=== PATIENT | female | born 1960 | race Caucasian/White ===

== ENCOUNTER 2016-12-11 15:29 | Emergency (ER) | payer OTHER ==
[2016-12-11 15:38] VITALS: BP 148/73; PULSE 80; TEMP 98.3; BMI 28.3
--- NOTE | 2016-12-11 17:28 | PDOC ---
History of Present Illness - General Chief Complaint: Lightheaded Stated Complaint: LOWER BACK PAIN Time Seen by Provider: 12/11/16 17:08 History Source: Patient Exam Limitations: No Limitations - History of Present Illness Initial Comments: CHIEF COMPLAINT: 56 y/o afebrile female with chronic low back pain and osteoporosis c/o worsening low back pain for the past 2 days. HISTORY OF PRESENT ILLNESS: The patient states the pain is worse on the right side and radiates down her right leg. She denies recent fall and back trauma, f /c, n/v/d, CP, SOB, palpitations, abd pain, hematuria, dysuria, saddle anesthesia, bowel/bladder incontinence. She has taken Tylenol for pain with no relief. She states at times the pain causes her to be dizzy. Vital signs on arrival are within normal limits. REVIEW OF SYSTEMS: GENERAL/CONSTITUTIONAL: No fever/chills. No weakness. No weight change. HEAD, EYES, EARS, NOSE AND THROAT: No change in vision. No ear pain or discharge. No sore throat. CARDIOVASCULAR: No chest pain or shortness of breath. RESPIRATORY: No cough, wheezing, or hemoptysis. GASTROINTESTINAL: No abd pain, nausea, vomiting, diarrhea. GENITOURINARY: No dysuria, frequency, or change in urination. MUSCULOSKELETAL: No joint or muscle swelling or pain. No neck pain. +low back pain. SKIN: No rash or easy bruising. NEUROLOGIC: No headache, vertigo, loss of consciousness, or loss of sensation. PHYSICAL EXAM: GENERAL: The patient is awake, alert, and fully oriented, in no acute distress. She is well appearing but slow with movements secondary to pain. HEAD: Normal with no signs of trauma. ENT: Pupils equal, round and reactive to light, extraocular movements intact, sclera anicteric, conjunctiva clear. Neck supple. LUNGS: Clear to auscultation bilaterally. Normal excursion. No respiratory distress or use of accessory muscles. CV: RRR, S1/S2, no MRG. Cap refill < 2 sec. ABDOMEN: Soft, non-distended, non-tender even to deep palpation, no hepatomegaly or splenomegaly, no masses. BACK: No midline low back pain or step offs. Pain reproduced with palpation of b/l lumbar paravertebral muscles and of b/l gluteal muscles, worse on the right side. Pain reproduced with stretching of the piriformis muscles. EXTREMITIES: Normal range of motion, no edema. Equal straight leg raise b/l. NEUROLOGICAL: Normal speech, normal gait. CN II-XII grossly intact. No saddle anesthesia. PSYCH: Normal mood, normal affect. SKIN: Warm, dry, normal turgor, no rashes or lesions noted. Past History - Past Medical History Allergies/Adverse Reactions: Allergies Allergy/AdvReac Type Severity Reaction Status Date / Time No Known Allergies Allergy Verified 12/11/16 15:33 Home Medications: Ambulatory Orders Oxycodone HCl/Acetaminophen [Percocet 5-325 mg Tablet] 1 tab PO Q6H PRN #15 tablet MDD 4 05/05/16 Aspirin [ASA -] 81 mg PO DAILY 12/11/16 Ibuprofen 600 mg PO TID #20 tablet 12/11/16 Metformin HCl 500 mg PO DAILY 12/11/16 Methocarbamol [Robaxin -] 1,000 mg PO TID #24 tablet 12/11/16 Cardiac Disorders: Yes Diabetes: Yes (PRE) Other medical history: O.P - Surgical History Cholecystectomy: Yes - Psycho/Social/Smoking Cessation Hx Anxiety: No Suicidal Ideation: No Smoking Status: Yes Smoking History: Current every day smoker Have you smoked in the past 12 months: Yes Number of Cigarettes Smoked Daily: 6 Information on smoking cessation initiated: Yes 'Breaking Loose' booklet given: 12/11/16 Hx Alcohol Use: No Drug/Substance Use Hx: No Substance Use Type: None *Physical Exam - Vital Signs Last Vital Signs Temp Pulse Resp BP Pulse Ox 98.3 F 80 18 148/73 100 12/11/16 15:35 12/11/16 15:35 12/11/16 15:35 12/11/16 15:35 12/11/16 15:35 Medical Decision Making - Medical Decision Making A/P: 56 y/o afebrile female with b/l sciatica, worse on right side. Plan is as follows: 1. IM toradol 2. PO robaxin Demonstrated a stretch for her piriformis muscle and encouraged the patient to perform once per hour at home to help stretch the muscle and reduce pain. Also suggested massage to the affected area as tolerated. Sent prescriptions for ibuprofen and robaxin and instructed the patient to take together to help with pain. Informed her that robaxin may cause drowsiness. Suggested she f/u with Dr. Camargo in 1-2 weeks if no improvement in pain with medications, and return to the ER with any worsening or concerning symptoms. The patient verbalizes understanding of all instructions, has no further questions and is awaiting discharge. *DC/Admit/Observation/Transfer Diagnosis at time of Disposition: Sciatica, right side Low back pain Qualifiers: Chronicity: acute Back pain laterality: bilateral Sciatica presence: with sciatica Sciatica laterality: bilateral sciatica Qualified Code(s): M54.42 - Lumbago with sciatica, left side - Discharge Dispostion Disposition: HOME Condition at time of disposition: Stable - Prescriptions Prescriptions: Ibuprofen 600 mg PO TID #20 tablet Methocarbamol [Robaxin -] 1,000 mg PO TID #24 tablet - Referrals Referrals: Catherine Camargo [Primary Care Provider] - - Patient Instructions Printed Discharge Instructions: DI for Back Pain With Sciatica, DI for Sciatica Additional Instructions: Discharge Instructions: -2 prescriptions have been sent to your pharmacy; please take them together 3 times per day with food -The medication may cause you to be drowsy -Perform the stretches shown to you in the ER once an hour until you feel better -Have someone massage your back and buttocks at least once per day -Follow up with Dr. Camargo in 2 weeks if no improvement in symptoms with medication and stretching. Instrucciones de christin: -2 recetas roldan sido enviadas a reynoso farmacia; Por favor, tmelos juntos 3 veces al da con la comida -El medicamento puede provocar somnolencia -Realizar los tramos que se le muestran en el ER emile vez por hora hasta que se sienta mejor -Favian que alguien masaje reynoso espalda y nalgas al menos emile vez al da -Seguir con el Dr. Downey en 2 semanas si no mejora los sntomas con medicacin y estiramiento. Print Language: BURMESE
[2016-12-11] MEDS ORDERED: METHOCARBAMOL 500 MG TABLET PO ONE (17:42)
[2016-12-11] MEDS ORDERED: KETOROLAC TROMETHAMINE 60 MG/2 ML VIAL IM ONE (17:42)
[2016-12-11] MEDS ORDERED: KETOROLAC TROMETHAMINE 60 MG/2 ML VIAL ONE (17:49)
[2016-12-11] MEDS ORDERED: METHOCARBAMOL 500 MG TABLET ONE (17:49)
--- NOTE | 2016-12-11 17:53 | PDOC ---
*Physical Exam - Vital Signs Last Vital Signs Temp Pulse Resp BP Pulse Ox 98.3 F 80 18 148/73 100 12/11/16 15:35 12/11/16 15:35 12/11/16 15:35 12/11/16 15:35 12/11/16 15:35 Medical Decision Making - Medical Decision Making 12/11/16 17:53 Pt seen by the Advanced Practice Provider under my direct supervision Ancillary studies reviewed I agree with plan as outlined by the Advanced Practice Provider PARVEZ Doyle *DC/Admit/Observation/Transfer Diagnosis at time of Disposition: Sciatica, right side Low back pain Qualifiers: Chronicity: acute Back pain laterality: bilateral Sciatica presence: with sciatica Sciatica laterality: bilateral sciatica Qualified Code(s): M54.42 - Lumbago with sciatica, left side - Prescriptions Prescriptions: Ibuprofen 600 mg PO TID #20 tablet Methocarbamol [Robaxin -] 1,000 mg PO TID #24 tablet - Referrals Referrals: Catherine Camargo [Primary Care Provider] - - Patient Instructions - Post Discharge Activity
== END 2016-12-11 18:04 | disposition home or self-care (01) ==
LOC: JER 15:29
PROC: 3E0233Z Introduction of Anti-inflammatory into Muscle, Percutaneous Approach (ICD-10-PCS; principal; 2016-12-11)
DX: M54.41 Lumbago with sciatica, right side (principal); M54.42 Lumbago with sciatica, left side
CPT/HCPCS: 96372; 99282-25

== ENCOUNTER 2019-05-20 21:37 | Emergency (ER) | payer OTHER ==
--- NOTE | 2019-05-20 21:47 | PDOC ---
Rapid Medical Evaluation Medical Evaluation: Allergies Allergy/AdvReac Type Severity Reaction Status Date / Time No Known Allergies Allergy Verified 12/11/16 15:33 05/20/19 21:47 I have performed a brief in-person evaluation of this patient. The patient presents with a chief complaint of: dysuria w/ flank pain Pertinent physical exam findings: stable I have ordered the following:ua/cx The patient will proceed to the ED for further evaluation Discharge Disposition - Diagnosis Dysuria - Referrals - Patient Instructions - Post Discharge Activity
[2019-05-20 22:00] VITALS: BMI 31.3
[2019-05-20] MEDS ORDERED: morphine CARPU-JECT 4 MG/1 ML DISP.SYRIN IVPUSH ONE (22:56)
[2019-05-20] MEDS ORDERED: LACTATED RINGERS SOLUTION 1000 ML INFUS.BAG IV ONE (22:56)
[2019-05-20] MEDS ORDERED: morphine SULFATE 4 MG/ML VIAL ONE (23:02)
--- NOTE | 2019-05-20 23:03 | PDOC ---
History of Present Illness <Jessica Portillo - Last Filed: 05/21/19 01:24> - General History Source: Patient, Family (Daughter present at bedside.), Pt declined Social Work Job Titles (Pt [place]an speaking only. Requested daughter translate. ) Exam Limitations: Language Barrier - History of Present Illness Initial Comments: HPI: 58 y/o female presenting to [facility] ER complaining of RLQ and suprapubic pain w/ radiation to R and L lower back for the past four days. Endorses burning sensation while voiding without hematuria and nausea. Denies vomiting or diarrhea. Attempted relief with Naproxen with limited success. Denies recent abx course or h/o of diabetes. Medical Hx: - Chronic Pain - Osteoarthritis - S/p cholecystectomy Review of Systems: In addition to that documented in the HPI above, the additional ROS was obtained : Constitutional- Endorses chills. Denies fevers. Head- Denies vision changes ENMT- Denies sore throat CV- Denies chest pain Resp- Denies SOB GI- Denies vomiting or diarrhea - Per HPI MSK- Denies recent trauma Skin- Denies new rashes Neuro- Denies new numbness or tingling or weakness Endocrine- Denies polyuria Heme- Denies bleeding or bruising Physical Examination: Constitutional- Well-developed, well-nourished adult female in no acute distress but obvious discomfort. Found semi-fowlers on hospital bed. Answered all questions appropriately and completely. Head- Normocephalic. No obvious external signs of trauma. Cardiovascular / Chest- Regular rate and regular rhythm. No murmur, rubs, clicks , or gallops. Peripheral pulses- radial pulses full. Respiratory- Breathing unlabored. Equal chest rise and fall. Clear to auscultation bilaterally. No stridor, no wheezing, no rhonchi. Gastrointestinal- abdomen is tender in RLQ and suprapubic area with rebound and guarding. Globally, abdomen is soft and non-distended. No pulsatile masses. No overlying skin lesions or obvious signs of trauma. Pain worse when transitioning from laying to sitting position. Neuro- Alert and oriented x4. Moving all four extremities spontaneously. Skin- Warm, dry, and intact. - Left CVA tenderness. Psych- Affect- appropriate. Mood- normal. Speech was non-labored, non- pressured. MDM: *Reviewed vital signs, nursing notes, and prior visit documentation (if available). 58 y/o female presenting with lower abdominal pain radiating to R and L flanks, and dysuria. Afebrile. Vitals unremarkable for hypotension or tachycardia. Physical exam as described above. CTAP unremarkable for signs of acute appendicitis. Likely incidental finding of uterine fibroid and left renal cyst. Pt has no knowledge of either of these findings. Discussed importance of f/u with PCP and OBGYN. UA remarkable for pyuria and leukocyte esterase. Suspect likely cystitis. Given dose of Ceftriaxone in the department. Prescribed Macrobid for outpatient abx. Discussed labs and radiology results with pt and daughter. Answered all questions. Provided return precautions. Pt and daughter expressed verbal understanding and agreement with plan to discharge home with outpatient follow up. Provided copies of todays results. Fuad Smallwood M.D., PGY2 Emergency Medicine Resident <Fuad Smallwood - Last Filed: 05/21/19 02:47> - General Chief Complaint: Urinary Problem Stated Complaint: URINARY PROBLEM Time Seen by Provider: 05/20/19 21:54 Past History <Jessica Portillo - Last Filed: 05/21/19 01:24> - Past Medical History Cardiac Disorders: Yes COPD: No Diabetes: Yes (PRE) - Surgical History Cholecystectomy: Yes - Psycho Social/Smoking Cessation Hx Smoking Status: Yes Smoking History: Never smoked Have you smoked in the past 12 months: Yes Number of Cigarettes Smoked Daily: 6 'Breaking Loose' booklet given: 12/11/16 Hx Alcohol Use: No Drug/Substance Use Hx: No Substance Use Type: None <Fuad Smallwood - Last Filed: 05/21/19 02:47> - Past Medical History Allergies/Adverse Reactions: Allergies Allergy/AdvReac Type Severity Reaction Status Date / Time No Known Allergies Allergy Verified 05/20/19 23:47 Home Medications: Ambulatory Orders Loratadine [Claritin] 10 mg PO DAILY #7 tablet 01/30/18 Nitrofurantoin Monohyd/M-Cryst [Macrobid -] 100 mg PO BID #14 capsule 05/21/19 *Physical Exam - Vital Signs Last Vital Signs Temp Pulse Resp BP Pulse Ox 97.9 F 88 20 126/75 97 05/20/19 21:57 05/20/19 23:25 05/20/19 23:25 05/20/19 23:25 05/20/19 23:25 <Jessica Portillo - Last Filed: 05/21/19 01:24> - Vital Signs Last Vital Signs Temp Pulse Resp BP Pulse Ox 97.9 F 59 L 20 148/80 100 05/20/19 21:57 05/20/19 21:57 05/20/19 21:57 05/20/19 21:57 05/20/19 21:57 <Fuad Smallwood - Last Filed: 05/21/19 02:47> ED Treatment Course - LABORATORY CBC & Chemistry Diagram: 05/20/19 23:15 05/20/19 23:15 - ADDITIONAL ORDERS Additional order review: Laboratory Results 05/20/19 05/20/19 05/20/19 23:23 23:23 23:15 PT with INR INR PTT (Actin FS) Sodium Potassium Chloride Carbon Dioxide Anion Gap BUN Creatinine Est GFR (CKD-EPI)AfAm Est GFR (CKD-EPI)NonAf Random Glucose Calcium Total Bilirubin AST ALT Alkaline Phosphatase Total Protein Albumin Lipase Urine Color Yellow Urine Appearance Clear Urine pH 6.5 Ur Specific [place] 1.002 L Urine Protein Negative Urine Glucose (UA) Negative Urine Ketones Negative Urine Blood Trace Urine Nitrite Negative Urine Bilirubin Negative Urine Urobilinogen 0.2 Ur Leukocyte Esterase 3+ H Urine WBC (Auto) 15-20 Urine RBC (Auto) 2-4 Urine Casts (Auto) 0 U Epithel Cells (Auto) Few U Sm Round Cell (Auto) None seen Urine Bacteria (Auto) Few Urine HCG, Qual Negative Blood Type O POSITIVE Antibody Screen Negative 05/20/19 05/20/19 05/20/19 23:15 23:15 23:15 PT with INR 11.20 INR 0.95 PTT (Actin FS) Sodium 139 Potassium 4.0 Chloride 106 Carbon Dioxide 26 Anion Gap 8 BUN 12.1 Creatinine 0.7 Est GFR (CKD-EPI)AfAm 111.47 Est GFR (CKD-EPI)NonAf 96.18 Random Glucose 95 Calcium 9.7 Total Bilirubin 0.3 AST 22 ALT 32 Alkaline Phosphatase 108 Total Protein 7.9 Albumin 4.6 Lipase 183 Urine Color Urine Appearance Urine pH Ur Specific [place] Urine Protein Urine Glucose (UA) Urine Ketones Urine Blood Urine Nitrite Urine Bilirubin Urine Urobilinogen Ur Leukocyte Esterase Urine WBC (Auto) Urine RBC (Auto) Urine Casts (Auto) U Epithel Cells (Auto) U Sm Round Cell (Auto) Urine Bacteria (Auto) Urine HCG, Qual Blood Type Antibody Screen 05/20/19 23:15 PT with INR INR PTT (Actin FS) 42.2 H Sodium Potassium Chloride Carbon Dioxide Anion Gap BUN Creatinine Est GFR (CKD-EPI)AfAm Est GFR (CKD-EPI)NonAf Random Glucose Calcium Total Bilirubin AST ALT Alkaline Phosphatase Total Protein Albumin Lipase Urine Color Urine Appearance Urine pH Ur Specific [place] Urine Protein Urine Glucose (UA) Urine Ketones Urine Blood Urine Nitrite Urine Bilirubin Urine Urobilinogen Ur Leukocyte Esterase Urine WBC (Auto) Urine RBC (Auto) Urine Casts (Auto) U Epithel Cells (Auto) U Sm Round Cell (Auto) Urine Bacteria (Auto) Urine HCG, Qual Blood Type Antibody Screen 05/20/19 23:15 RBC 4.95 MCV 91.5 MCHC 33.0 RDW 13.1 MPV 8.8 Neutrophils % 45.3 Lymphocytes % 45.1 H Monocytes % 5.5 Eosinophils % 2.8 Basophils % 1.3 D - Medications Given in the ED: ED Medications Discontinued Medications Generic Name Dose Route Start Last Admin Trade Name Freq PRN Reason Stop Dose Admin Lactated Ringer's 1,000 ml 05/20/19 22:56 05/20/19 23:28 Lactated Ringers Solution IV 05/20/19 22:57 1,000 ml ONCE ONE Administration Morphine Sulfate 4 mg 05/20/19 22:56 05/20/19 23:28 Morphine Injection - IVPUSH 05/20/19 22:57 4 mg ONCE ONE Administration <Jessica Portillo - Last Filed: 05/21/19 01:24> - LABORATORY CBC & Chemistry Diagram: 05/20/19 23:15 05/20/19 23:15 - RADIOLOGY Radiology Studies Ordered: Category Date Time Status ABDOMEN & PELVIS CT WITH CONTR [CT] Stat CT Scan 05/20/19 22:55 Ordered CHEST PA & LAT [RAD] Stat Radiology 05/20/19 22:56 Ordered Radiograph Interpretation: CTAB: THIS IS A PRELIMINARY REPORT FROM [facility]AGING COLLECTION TECHNICIAN DATE OF SERVICE: 2019-05-21 01:26:51 IMAGES: [id number] EXAM: ABDOMEN \T\ PELVIS CT WITH CONTR HISTORY: Right lower quadrant pain, with rebound COMPARISON: None. FINDINGS: Axial imaging following IV administration of Omnipaque 350 with sagittal and coronal reconstructions. Mild volume dependent atelectatic changes are seen in the imaged lung bases. The imaged heart is normal in size and no pericardial effusion is seen. The liver measuring 15.8 cm in length. Pneumobilia noted with cholecystectomy clips, dilated common bile duct, measuring up to 12 mm proximally. No ductal calculi noted. Unremarkable spleen, pancreas, and adrenals. Cyst in the upper pole of the left kidney. No renal or ureteral calculi and no hydronephrosis. Distended urinary bladder with mild bladder wall thickening. No bowel obstruction. Partially air-filled appendix, normal in caliber without evidence of appendicitis. Ileus of the terminal ileum. Mild to moderate amount of fecal material within the colon. Small hiatal hernia. No diverticulosis or diverticulitis. Normal caliber aorta. Atherosclerotic calcifications in the aortoiliac system. No lymphadenopathy. No ascites. Calcified injection granulomas. Anteverted uterus. Solid mass in the left adnexa with calcifications, contiguous with the uterus, measuring 5.3 x 4.3 cm. No acute osseous changes. Osteopenia. Degenerative changes in the imaged spine. IMPRESSION: 1. No evidence of appendicitis. 2. Ileus of the terminal ileum. 3. Status post cholecystectomy with postsurgical pneumobilia and dilated common bile duct but no ductal calculi. 4. Left renal cyst. 5. Probable pedunculated left adnexal partially calcified leftward uterine leiomyoma. Further evaluation with pelvic ultrasound if not previously known or evaluated. 6. Cystitis suggested. One or more of the following dose reduction techniques were used: automated exposure control, adjustment of the mA and/or kV according to patient size, use of iterative reconstructive technique. THIS DOCUMENT HAS BEEN ELECTRONICALLY SIGNED Raghu Junior MD 05/21/2019 02:05 EST 05/21/19 02:08 <Fuad Smallwood - Last Filed: 05/21/19 02:47> Discharge <Jessica Portillo - Last Filed: 05/21/19 01:24> - Discharge Information Problems reviewed: Yes - Admission No <Fuad Smallwood - Last Filed: 05/21/19 02:47> - Discharge Information Clinical Impression/Diagnosis: Dysuria, Cystitis, Renal cyst, left Uterine fibroid Qualifiers: Uterine leiomyoma location: unspecified location Qualified Code(s): D25.9 - Leiomyoma of uterus, unspecified Condition: Good Disposition: HOME - Additional Discharge Information Prescriptions: Nitrofurantoin Monohyd/M-Cryst [Macrobid -] 100 mg PO BID #14 capsule - Follow up/Referral Referrals: Catherine Camargo A [Primary Care Provider] - Karl Gutiérrez MD [Staff Physician] - - Patient Discharge Instructions Patient Printed Discharge Instructions: DI for Uterine Fibroids, DI for Acute Cystitis Additional Instructions: Usted fue visto hoy por dolor y ardor en la parte baja del abdomen al orinar to los ltimos lombardi. Seema sntomas son probablemente de emile infeccin del tracto urinario. Le dieron emile dosis de antibiticos en el departamento de emergencias. He enviado emile receta de Macrobid, un antibitico, a de la paz farmacia. Tmelo jeffery se indica en el prospecto. No exceda la dosis recomendada. [place] tomografa computarizada mostr que tiene un fibroma en el tero y un quiste en el rin garret. Es probable que esto no sea la causa de seema sntomas, kyle es algo que de la paz mdico de atencin primaria necesita ms informacin. Favian un seguimiento con de la paz mdico de atencin primaria dentro de los prximos 2- 3 lombardi. Deber llamar para hacer emile kellee. El nmero est incluido en rima paquete. Se adjunta emile copia de los resultados de hoy a rima paquete. Llvelo a la kellee para que de la paz mdico pueda revisarlos. Pam puede genesis a un mdico OBGYN. He introducido emile referencia para que nicho al Dr. Gutiérrez. Deber llamar para hacer emile kellee. El nmero est incluido en rima paquete. Se adjunta emile copia de los resultados de hoy a rima paquete. Llvelo a la kellee para que de la paz mdico pueda revisarlos. Dirjase al departamento de emergencias ms cercano si de la paz afeccin empeora o siente que necesita emile evaluacin de emergencia adicional. You were seen today for lower abdominal pain and burning when peeing for the past several days. Your symptoms are likely from a urinary tract infection. You were given a dose of antibiotics in the emergency department. I have sent a prescription for Macrobid, an antibiotic, to your pharmacy. Take as directed on the package insert. Do not exceed the recommended dosage. Your CT scan showed you have a fibroid in your uterus and a cyst on your left kidney. This is not likely to be the cause of your symptoms, but is something your primary care doctor for more information. Follow up with your primary care doctor within the next 2-3 days. You will need to call to make an appointment. The number is included in this packet. A copy of [facility] results are attached to this packet. Take it to the appointment so your doctor can review them. You can also see an OBGYN doctor. I have entered a referral for you to see Dr. Gutiérrez. You will need to call to make an appointment. The number is included in this packet. A copy of [facility] [employer] results are attached to this packet. Take it to the appointment so your doctor can review them. Go to the nearest emergency department if your condition worsens or you feel like you need additional emergency evaluation. Print Language: KINYARWANDA - Post Discharge Activity
[2019-05-20 23:34] LABS: BASO % 1.3 % (0-2.0); EOS % 2.8 % (0-4.5); HEMATOCRIT 45.3 % (32.4-45.2); HEMOGLOBIN 14.9 GM/dL (10.7-15.3); LYMPH % 45.1 % (8-40); MCH 30.2 pg (25.7-33.7); MEAN CELL VOLUME 91.5 fl (80-96); MEAN PLT VOLUME 8.8 fl (7.5-11.1); MONO % 5.5 % (3.8-10.2); NEUT % 45.3 % (42.8-82.8); PLATELET COUNT 279 K/MM3 (134-434); RBC 4.95 M/mm3 (3.60-5.2); RDW 13.1 % (11.6-15.6); WHITE BLOOD COUNT 9.8 K/mm3 (4.0-10.0)
[2019-05-20 23:40] LABS: INR 0.95 (0.83-1.09); PROTHROMBIN TIME (PATIENT) 11.2 SEC (9.7-13.0)
[2019-05-20 23:40] LABS: PH,URINE 6.5 (5.0-8.0); URINE APPEARANCE CLEAR; URINE BILIRUBIN NEGATIVE (NEGATIVE); URINE COLOR YELLOW; URINE GLUCOSE (UA) NEGATIVE (NEGATIVE); URINE KETONE NEGATIVE (NEGATIVE); URINE LEUK ESTERASE 3+ (NEGATIVE); URINE NITRITE NEGATIVE (NEGATIVE); URINE PROTEIN NEGATIVE (NEGATIVE); URINE UROBILINOGEN 0.2 mg/dL (0.2-1.0)
[2019-05-20 23:50] LABS: URINE WBC 15-20 /hpf (0-5)
[2019-05-20 23:51] LABS: EPI CELLS FEW /HPF (0-5/HPF); HYALINE CASTS 0 /lpf (0-8); URINE BACTERIA FEW /hpf (NEGATIVE)
[2019-05-21 00:05] LABS: ALBUMIN 4.6 g/dl (3.4-5.0); BILIRUBIN,TOTAL 0.3 mg/dL (0.2-1); BLOOD UREA NITROGEN 12.1 mg/dL (7-18); CALCIUM 9.7 mg/dL (8.5-10.1); CREATININE 0.7 mg/dL (0.55-1.3); TOT PROT 7.9 g/dl (6.4-8.2)
--- NOTE | 2019-05-21 01:28 | PDOC ---
Documentation entered by Akila Bauman SCRIBE, acting as scribe for Jessica Portillo MD. Jessica Portillo MD: This documentation has been prepared by the Merna richmond Adrianna, SCRIBE, under my direction and personally reviewed by me in its entirety. I confirm that the documentation accurately reflects all work, treatment, procedures, and medical decision making performed by me. Attending Attestation - Resident Resident Name: SmallwoodFuad - ED Attending Attestation I have performed the following: I have examined & evaluated the patient, The case was reviewed & discussed with the resident, I agree w/resident's findings & plan, Exceptions are as noted - HPI HPI: The patient is a 58 year old female, with a significant PMH of OA and chronic pain, who presents to the ED for evaluation of abdominal pain for 4 days. Patient complains of RLQ & suprapubi pain that radiates to bilateral flanks. She endorses associated dysuria. Allergies: NKA, NKDA Surgical History: Cholecystectomy Social History: Current everyday smoker (/ ppd). Denies EtOH or illicit drug use PCP: Dr. Camargo - Physicial Exam PE: 05/21/19 01:25 58-year-old female with complaint of pain to RLQ and flank pain Physical exam shows right lower quadrant tenderness Right cva tenderenss lungs cta b/l cvs [id number] neuro axox3, ambulatory - Medical Decision Making 05/21/19 01:27 ct scan pending Heart Score/ECG Review - ECG Intrepretation Comment:: Normal sinus rhythm. Vent rate 87bpm, NE interval 162ms, QRS duration 72ms, QT/QTc 378/454ms, P-R-T axes 67 24 38
[2019-05-21] MEDS ORDERED: CEFTRIAXONE 1,000 MG in DEXTROSE 5%-WATER - 50 ML IVPB ONE (02:33)
[2019-05-21] MEDS ORDERED: CEFTRIAXONE 1 GM/50 ML BAG ONE (02:36)
[2019-05-21 03:00] VITALS: BP 130/79; PULSE 84; TEMP 98.2
--- NOTE | 2019-05-21 12:09 | EKG ---
Test Reason : Blood Pressure : / mmHG Vent. Rate : 087 BPM Atrial Rate : 087 BPM P-R Int : 162 ms QRS Dur : 072 ms QT Int : 378 ms P-R-T Axes : 067 024 038 degrees QTc Int : 454 ms NORMAL SINUS RHYTHM NORMAL ECG WHEN COMPARED WITH ECG OF 31-JAN-2018 00:59, NO SIGNIFICANT CHANGE WAS FOUND Confirmed by TRAMAINE MEJIA MD ([id number]) on 05/21/2019 12:09:46 PM Referred By: Confirmed By:TRAMAINE MEJIA MD
== END 2019-05-21 02:56 | disposition home or self-care (01) ==
LOC: JER 21:37
PROC: 3E03329 Introduction of Other Anti-infective into Peripheral Vein, Percutaneous Approach (ICD-10-PCS; principal; 2019-05-20)
PROC: 3E033NZ Introduction of Analgesics, Hypnotics, Sedatives into Peripheral Vein, Percutaneous Approach (ICD-10-PCS; 2019-05-20)
DX: N30.00 Acute cystitis without hematuria (principal); D25.9 Leiomyoma of uterus, unspecified; N28.1 Cyst of kidney, acquired; M19.90 Unspecified osteoarthritis, unspecified site; G89.29 Other chronic pain
CPT/HCPCS: 36415; 71045-TC-FY; 74177-TC; 80053; 81003; 83690; 84703; 85025; 85610; 85730; 86850; 86900; 86901; 87086; 87186; 93005; 93010; 96365; 96375; 99283-25

== ENCOUNTER 2022-07-02 11:57 | Emergency (ER) | payer OTHER ==
[2022-07-02 12:03] VITALS: BP 149/78; PULSE 97; RESP 18; TEMP 98.2; BMI 30.2
[2022-07-02] MEDS ORDERED: FAMOTIDINE 20 MG TABLET PO ONE (13:11)
[2022-07-02] MEDS ORDERED: MAG HYDROX/AL HYDROX/SIMETH 30 ML UNIT-DOSE CUP PO ONE (13:11)
[2022-07-02] MEDS ORDERED: LIDOCAINE VISCOUS 2% ORAL/TOP 15 ML UNIT-DOSE CUP MM ONE (13:12)
[2022-07-02] MEDS ORDERED: LIDOCAINE VISCOUS 2% ORAL/TOP 15 ML UNIT-DOSE CUP ONE (13:41)
[2022-07-02] MEDS ORDERED: MAG HYDROX/AL HYDROX/SIMETH 30 ML UNIT-DOSE CUP ONE (13:42)
[2022-07-02] MEDS ORDERED: FAMOTIDINE 20 MG TABLET ONE (13:43)
== END 2022-07-02 14:34 | disposition home or self-care (01) ==
LOC: JER 11:57
DX: R10.13 Epigastric pain (principal)
CPT/HCPCS: 71046-TC-FY; 93005; 93010; 99284-25